=== PATIENT | male | born 1970 | race Caucasian/White ===

== ENCOUNTER 2019-08-11 06:33 | Emergency (ER) | payer OTHER ==
[2019-08-11] MEDS ORDERED: Ondansetron PF 4 MG/2 ML Vial ONE (07:21)
[2019-08-11 08:03] LABS: #Basophils 0.1 thou/uL (0.0-0.2); #Eosinphils 0.1 thou/uL (0.0-0.7); #Lymphocytes 1.4 thou/uL (1.20-3.40); #Monocytes 0.8 thou/uL (0.11-0.59); %Basophils 0.7 % (0.0-1.0); %Eosinophils 0.7 % (0.0-10.0); %Lymphocytes 10.2 % (21.0-51.0); %Monocytes 5.6 % (0.0-10.0); %Neutrophils 82.8 % (42.0-75.0); Hemoglobin 16.1 g/dL (14.0-18.0); Mean Corpuscular HGB CONC 33.4 g/dL (32.0-36.0); Mean Corpuscular Hemoglobin 30.3 pg (27.0-31.0); Mean Corpuscular Volume 90.7 fL (78.0-98.0); Mean Platelet Volume 7.6 fL (7.4-10.4); Platelet Count 260 thou/uL (130-400); RBC Distribution Width 11.8 % (11.5-14.5); White Blood Cell (WBC) Count 13.3 thou/uL (4.8-10.8)
[2019-08-11 08:23] LABS: ALT (SGPT) 18 U/L (8-55); AST (SGOT) 19 U/L (5-34); Albumin 4.9 g/dL (3.5-5.0); Alkaline Phosphatase 118 U/L (40-110); Anion Gap 14 mmol/L (10-20); BUN (Urea Nitrogen) 25 mg/dL (8.9-20.6); Bilirubin, Total 0.6 mg/dL (0.2-1.2); Calc. Creatinine Clearance 0 mL/min (70-130); Calcium 11.8 mg/dL (7.8-10.44); Carbon Dioxide 27 mmol/L (22-29); Chloride 103 mmol/L (98-107); Estimated GFR-MDRD 59; Globulin 3.2 g/dL (2.4-3.5); Glucose 112 mg/dL (70-105); Lipase 20 U/L (8-78); Potassium 4.3 mmol/L (3.5-5.1); Protein, Total 8.1 g/dL (6.0-8.3); Sodium 140 mmol/L (136-145)
[2019-08-11] MEDS ORDERED: Metoclopramide HCl 10 MG/2 ML VIAL ONE (08:34)
[2019-08-12 11:56] LABS: SARS-CoV-2 MS2 Positive; SARS-CoV-2 N Gene Negative; SARS-CoV-2 S Gene Negative; SARS-CoV-2 orf1ab Negative
== END 2019-08-11 11:24 | disposition home or self-care (01) ==
LOC: ERS 06:33
DX: R11.2 Nausea with vomiting, unspecified (principal); D72.829 Elevated white blood cell count, unspecified; Z20.828 Contact with and (suspected) exposure to other viral communicable diseases
CPT/HCPCS: 80053; 83690; 85025; 87635; 96361; 96365; 96375; J2405; J2765; U0003

== ENCOUNTER 2020-05-12 10:57 | Emergency (ER) | payer OTHER, SELFPAY ==
[2020-05-12] MEDS ORDERED: Boostrix 0.5 ML (Tdap) VIAL ONE (12:01)
[2020-05-12] MEDS ORDERED: Clindamycin/D5W 900 mg/50 ml Premix Bag ONE (12:01)
[2020-05-12] MEDS ORDERED: Fentanyl 100 MCG/2 ML VIAL ONE (12:01)
[2020-05-12] MEDS ORDERED: Lidocaine 1% w/Epinephrine 1:100K 20 ML VIAL ONE (12:21)
== END 2020-05-12 13:24 | disposition home or self-care (01) ==
LOC: ERS 10:57
DX: L02.31 Cutaneous abscess of buttock (principal); Z23 Encounter for immunization; W57.XXXA Bitten or stung by nonvenomous insect and other nonvenomous arthropods, initial encounter
CPT/HCPCS: 10060; 90471; 90715; 96365; 96375; J3010; J3490

== ENCOUNTER 2020-07-16 15:22 | Emergency (ER) | payer SELFPAY ==
[2020-07-16] MEDS ORDERED: Lidocaine 1% w/Epinephrine 1:100K 20 ML VIAL ONE (15:47)
[2020-07-16] MEDS ORDERED: HYDROcodone/Acetaminophen 5/325 mg Tablet ONE (15:47)
== END 2020-07-16 16:11 | disposition home or self-care (01) ==
LOC: ERS 15:22
DX: L02.31 Cutaneous abscess of buttock (principal); L03.317 Cellulitis of buttock
CPT/HCPCS: 10060

== ENCOUNTER 2021-03-22 11:42 | Emergency (ER) | payer SELFPAY | END 2021-03-22 12:45 | disposition home or self-care (01) | LOC: ERS 11:42 | DX: U07.1 COVID-19 (principal) | CPT/HCPCS: 99283 ==

== ENCOUNTER 2022-09-30 10:34 | Outpatient (CLI) | payer BC | END 2022-09-30 10:35 | disposition home or self-care (01) | LOC: RAD 10:34 | PROVIDERS: ATTEND Family Medicine | DX: L02.91 Cutaneous abscess, unspecified (principal) ==